=== PATIENT | female | born 1985 | race Caucasian/White ===

== ENCOUNTER 2021-03-23 21:58 | Emergency (ER) | payer OTHER ==
[~2021-03-23] VITALS: Ht 165.1 cm; Wt 47.6 kg
[~2021-03-23 21:58] MED LIST: AMOXICILLIN500 MG PO; ANAPROX DS550 MG PO; CLINDAMYCIN HC300 MG PO; CORTISPORIN SUS10 ML OT; NKHM; PERCOCET 325 MG1 TA5 PO; PRENATAL1 TA1 PO
[2021-03-23] MEDS ORDERED: IBUPROFEN600 MG PO (22:33)
[2021-03-23] MEDS ORDERED: AUGMENTIN 875875 MG PO (22:33)
== END 2021-03-24 00:41 | disposition home or self-care (01) ==
LOC: ED 21:58
DX: S61.411A Laceration without foreign body of right hand, initial encounter (principal); S61.211A Laceration without foreign body of left index finger without damage to nail, initial encounter; W54.0XXA Bitten by dog, initial encounter; Y93.89 Activity, other specified; Y92.89 Other specified places as the place of occurrence of the external cause; Y99.8 Other external cause status

== ENCOUNTER 2021-03-30 15:00 | Emergency (ER) | payer OTHER ==
[~2021-03-30] VITALS: Ht 165.1 cm; Wt 47.6 kg
[~2021-03-30 15:00] MED LIST changes: +AUGMENTIN 875875 MG PO; +IBUPROFEN600 MG PO
== END 2021-03-30 15:44 | disposition home or self-care (01) ==
LOC: ED 15:00
DX: Z23 Encounter for immunization (principal)

== ENCOUNTER 2021-04-06 09:59 | Emergency (ER) | payer OTHER ==
[~2021-04-06] VITALS: Wt 47.6 kg
== END 2021-04-06 15:00 | disposition home or self-care (01) ==
LOC: ED 09:59
DX: Z23 Encounter for immunization (principal)